=== PATIENT | male | born 1985 | race Caucasian/White ===

== ENCOUNTER → 2022-07-10 | Outpatient (CLI) | payer OTHER | LOC: M RAD 06:49 | PROVIDERS: ATTEND Physician Assistant | DX: N50.812 Left testicular pain (principal) ==

== ENCOUNTER → 2022-11-26 | Outpatient (CLI) | payer OTHER | LOC: M SOG 13:54 | PROVIDERS: ATTEND Orthopaedic Surgery Hand Surgery | DX: M25.532 Pain in left wrist (principal) ==

== ENCOUNTER → 2022-12-30 | Outpatient (CLI) | payer OTHER | LOC: M PLAIMG 13:51 | PROVIDERS: ATTEND Orthopaedic Surgery Hand Surgery | DX: M25.532 Pain in left wrist (principal) ==

== ENCOUNTER → 2023-01-09 | Outpatient (CLI) | payer OTHER | LOC: M SOG 15:32 | PROVIDERS: ATTEND Physician Assistant | DX: M25.532 Pain in left wrist (principal) ==

== ENCOUNTER → 2023-11-20 | Outpatient (REF) | LOC: M PLAIMG 10:31 | PROVIDERS: ATTEND Internal Medicine | DX: R52 Pain, unspecified (principal) ==

== ENCOUNTER → 2023-12-30 | Outpatient (CLI) | payer OTHER | LOC: M RAD 11:04 | PROVIDERS: ATTEND Physician Assistant | DX: M47.816 Spondylosis without myelopathy or radiculopathy, lumbar region (principal); M51.36 Other intervertebral disc degeneration, lumbar region; M50.222 Other cervical disc displacement at C5-C6 level ==

== ENCOUNTER → 2024-03-30 | Outpatient (CLI) | payer OTHER ==
[~2024-03-30] MED LIST: ISOVUE-300 61% 100ML VIAL As Ordered ONE; LIDOCAINE 1% MDV 20ML VIAL As Ordered ONE; PROHANCE 279.3MG/ML 5ML VIAL As Ordered ONE
== END ==
LOC: M RAD 06:26
PROVIDERS: ATTEND Physician Assistant
DX: M25.551 Pain in right hip (principal)
CPT/HCPCS: 27093; 73723; 77002; A9576; Q9967

== ENCOUNTER → 2024-10-28 | Outpatient (CLI) | payer OTHER | LOC: M SLEEP 20:00 | PROVIDERS: ATTEND Internal Medicine | DX: G47.33 Obstructive sleep apnea (adult) (pediatric) (principal); R06.83 Snoring ==